=== PATIENT | male | born 1990 | race Caucasian/White ===

== ENCOUNTER 2019-06-10 16:18 | Emergency (ER) | payer OTHER, SELFPAY ==
[2019-06-10 16:21] VITALS: RESP 16; BMI 25.7
[2019-06-10 16:27] VITALS: BP 117/82; PULSE 96; RESP 16; TEMP 36.8; O2SAT 96
--- NOTE | 2019-06-10 17:10 | ED_ITS ---
HPI - Extremity Problem General: Chief complaint: Extremity Injury, Upper Stated complaint: LEFT HAND LAC Time Seen by Provider: 06/10/19 17:09 Source: patient Mode of arrival: ambulatory Limitations: no limitations History of Present Illness: HPI Narrative: Patient was working on a automobile today and was retrieving apart from it and cut his hand on a piece of glass. Patient states his tetanus is up-to-date. Patient has good range of motion of the hand. Patient appears well. Patient appears no distress. Review of Systems General: Reports: 10 or more systems reviewed and unremarkable except in HPI and below Skin/Breast: Reports: other (laceration left hand) [facility] PFSH: Social History Smoking and tobacco status: current every day smoker Physical Exam Const: COMMON NORMALS: no apparent distress and oriented x3 GENERAL APPEARANCE: cooperative HENMT: COMMON NORMALS: normocephalic, external ears normal, EAC's normal, TM's normal bilaterally and external nose normal HEAD & SCALP: normal to inspection and normocephalic FACE & SINUS: normal facial exam NOSE: external nose normal GENERAL EAR: hearing not grossly impaired EXTERNAL EAR: Yes external ears normal EXTERNAL AUDITORY CANAL: EAC's normal TYMPANIC MEMBRANE: TM's normal bilaterally MOUTH: oral and palatal mucosa normal THROAT: posterior oropharynx normal Eye: COMMON NORMALS: PERRL and EOMs intact bilaterally PUPIL: Yes PERRL Neck/C-Spine: COMMON NORMALS: full ROM and no lymphadenopathy Lymph: LYMPHATIC: no lymphedema noted Chest: COMMONS NORMALS: inspection of chest normal and palpation of chest normal Resp: COMMON NORMALS: normal respiratory effort and clear to auscultation bilaterally AUSCULTATION: clear to auscultation bilaterally Cardio: COMMON NORMALS: regular rate and regular rhythm RATE: regular rate RHYTHM: regular rhythm GI: COMMON NORMALS: normal to inspection, nondistended, normoactive bowel sounds and non-tender : COMMON NORMALS: Yes no CVA tenderness BLADDER/KIDNEY EXAM: Yes no CVA tenderness Back/Pelvis: COMMON NORMALS: no CVA tenderness and thoracic and lumbar spine normal to inspection Extremity: COMMON NORMALS: normal to inspection GENERAL: No edema Neuro: COMMON NORMALS: oriented x3, moves all extremities and no focal motor deficits Psych: COMMON NORMALS: mental status grossly normal and cooperative Skin: NARRATIVE SKIN EXAM: 3 cm curved laceration to the left hand. No foreign body was noted. No tendon injury. Procedures Laceration Laceration 1: Site: hand Side (If applicable): left Size (cm): 3 Description: flap Local Anesthetic: lidocaine 1% Amount of anesthesia used (mL): 8 Pre-repair: wound explored, irrigated extensively and deep structures intact Skin layer closed with: nylon Size (cm): 5-0 Number of sutures: 6 Technique: simple, interrupted Course Vital Signs: Vital signs: Vital Signs Temperature 98.3 F 06/10/19 16:27 Pulse Rate 96 06/10/19 16:27 Respiratory Rate 16 06/10/19 16:27 Blood Pressure 117/82 06/10/19 16:27 Pulse Oximetry 96 06/10/19 16:27 MDM - Extremity (Nontraumatic) MDM Narrative: Medical decision making narrative: Patient presents with injury to the left hand. On exam we note a 3 cm laceration to the palmar aspect of the left central hand. Exam notes no foreign body. Good tendon function. No vascular or other deformity is noted. Differential diagnosis foreign body, laceration, wound infection. Wound was cleaned and irrigated. Wound was repaired with 6 stitches. Patient tetanus was up-to-date. Reviewed exam with patient with recommendations for treatment and follow-up for suture removal in 10 days. Discharge Plan Discharge Patient Disposition: Home, Self-Care Clinical Impression: Laceration Condition: Stable Prescriptions: New cephalexin 500 mg capsule 500 mg PO BID 10 Days Qty: 20 RF: 0 Referrals: ABEBE [Family Provider] - Discharge Diet: Usual diet Discharge Activity: Limit activity as instructed Patient Instructions: Laceration (ED) Activity Restrictions/Additional Instructions: keep wound clean and dry activity as tolerated medications as directed Acetaminophen and ibuprofen for pain follow-up for suture removal in 10 days Return to ER for high fever or new concerns Coding Level of Care Code ED Director [employer] for Yadira Fwswati Exam Comprehensive
[2019-06-10] MEDS: lidocaine 1% INJ 20 mL 10 ML INTRADERMA (17:40)
[2019-06-10 18:10] VITALS: BP 116/81; PULSE 77; RESP 16; O2SAT 97
== END 2019-06-10 18:12 | disposition home or self-care (01) ==
PROVIDERS: Emergency Provider Nurse Practitioner Family
DX: S61.412A Laceration without foreign body of left hand, initial encounter (principal); W25.XXXA Contact with sharp glass, initial encounter; F17.200 Nicotine dependence, unspecified, uncomplicated
CPT/HCPCS: 12002; 12345; 99281; 99282; J2001

== ENCOUNTER 2019-08-08 17:05 | Emergency (ER) | payer OTHER, SELFPAY ==
[2019-08-08 17:05] VITALS: PULSE 75
[2019-08-08 17:20] VITALS: BP 129/89; PULSE 85; RESP 18; TEMP 37.1; O2SAT 98; BMI 25.5
--- NOTE | 2019-08-08 17:28 | XR_ITS ---
WS: [id number] RIGHT HAND: 3 VIEW(S) TECHNIQUE: PA, oblique and lateral. HISTORY: trauma COMPARISON: None available. Acute comminuted fracture involving the proximal fifth metacarpal. Transverse and vertical components of the intra-articular fracture. No displacement. No additional fractures. Moderate soft tissue edema over the medial hand. XR/XR hand RT min 3V* [id number] IMPRESSION: Mildly comminuted, intra-articular but nondisplaced proximal fifth metacarpal f racture.
--- NOTE | 2019-08-08 18:20 | W.ED.EXTPRO ---
HPI - Extremity Problem General: Chief complaint: Extremity Injury, Upper Stated complaint: R HAND INJURY Time Seen by Provider: 08/08/19 17:53 History of Present Illness: HPI Narrative: 29-year-old male who punched a wooden wall earlier today, has hand pain and swelling. Pain localizes to the ulnar side of the hand. MD Complaint: extremity pain and extremity swelling Onset (ago): hour(s) Pain Consistency: constant Location: right and upper extremity (Hand) Quality: aching Radiation: none Relieving factors: nothing Exacerbating factors: range of motion Associated symptoms: Deny chest pain, fever(s) or rash Review of Systems Const: Denies: fever or chills Card: Denies: chest pain, palpitations or swelling of feet/ankles Resp: Denies: shortness of breath, productive cough or wheezing Skin/Breast: Denies: rash Neuro: Denies: changes in sensation PFS ED PFSH: Social History Smoking and tobacco status: current every day smoker Physical Exam Const: GENERAL APPEARANCE: well developed ORIENTATION/CONSCIOUSNESS: Yes oriented to person, Yes oriented to place and Yes oriented to time HENMT: FACE & SINUS: normal facial exam NOSE: no nasal discharge Eye: COMMON NORMALS: PERRL, EOMs intact bilaterally and conjunctivae normal EYELID: eyelids normal CONJUNCTIVA: Yes conjunctivae normal PUPIL: Yes PERRL Neck/C-Spine: GENERAL: No tracheal deviation Chest: COMMONS NORMALS: inspection of chest normal CHEST: No tenderness Resp: EFFORT & INSPECTION: No tachypneic and No respiratory distress Cardio: COMMON NORMALS: regular rate and regular rhythm RATE: regular rate RHYTHM: regular rhythm PERIPHERAL PULSES: radial pulses present GI: AUSCULTATION: No hypoactive bowel sounds Extremity: NARRATIVE EXTREMITY EXAM: Exam of the right hand reveals tenderness, along the ulnar side of the hand at the fourth and fifth metacarpal. There is swelling across the dorsum of the hand, some bruising across the volar hand. No rotational deformity noted. Neuro: SENSORIUM/ORIENTATION: Yes oriented to person, Yes oriented to place and Yes oriented to time Psych: COMMON NORMALS: mental status grossly normal Skin: COMMON NORMALS: no rashes or lesions noted GENERAL SKIN EXAM: no rashes or lesions noted Course Vital Signs: Vital signs: Vital Signs Temperature 98.8 F 08/08/19 17:20 Pulse Rate 85 08/08/19 17:20 Respiratory Rate 18 08/08/19 17:20 Blood Pressure 129/89 08/08/19 17:20 Pulse Oximetry 98 08/08/19 17:20 MDM - Extremity (Nontraumatic) MDM Narrative: Medical decision making narrative: X-ray reveals a nondisplaced likely intra-articular fracture through the base of the fifth metacarpal. He will be placed in an ulnar gutter splint and told to follow-up with orthopedics. Discharge Plan Discharge Patient Disposition: Home, Self-Care Clinical Impression: Fracture of hand Qualifiers: Encounter type: initial encounter Fracture type: closed Laterality: right Qualified Code(s): S62.91XA - Unspecified fracture of right wrist and hand, initial encounter for closed fracture Condition: Stable Prescriptions: New [place] 7.5-325 mg tablet 1 tab PO Q6H PRN (Reason: pain) Qty: 14 RF: 0 No Action No Known Home Medications RF: 0 Discharge Orders: Discharge Order (Routine); Ordered 08/08/19 Ordered By: Manuel Neves Referrals: Patrick Maloney MD [Physician] - 1-3 days [facility] [Primary Care Provider] - Discharge Diet: Usual diet Discharge Activity: Limit activity as instructed Patient Instructions: Hand Fracture (ED) Activity Restrictions/Additional Instructions: Call orthopedics Friday morning for an appointment this week. Stay in splint, until seen by them. You may ice, straight through the splint material. Coding Level of Care Code ED Assistant Field Hockey Coach for Yadira Fwd Exam Comprehensive
--- NOTE | 2019-08-08 18:43 | ED_ITS ---
HPI - Extremity Problem General: Chief complaint: Extremity Injury, Upper Stated complaint: R HAND INJURY Time Seen by Provider: 08/08/19 17:53 History of Present Illness: HPI Narrative: 29-year-old male who punched a wooden wall earlier today, he complains of hand pain MD Complaint: extremity pain Pain Consistency: constant Location: right and upper extremity (Hand) Quality: aching Relieving factors: nothing Exacerbating factors: range of motion Associated symptoms: Deny chest pain or fever(s) Review of Systems Const: Denies: fever or chills Card: Denies: chest pain or palpitations Resp: Denies: shortness of breath, productive cough or wheezing GI: Denies: abdominal pain or vomiting Neuro: Denies: numbness in extremities or weakness in extremities PFSH ED PFSH: Social History Smoking and tobacco status: current every day smoker Physical Exam Const: GENERAL APPEARANCE: well developed ORIENTATION/CONSCIOUSNESS: Yes oriented to person, Yes oriented to place and Yes oriented to time HENMT: COMMON NORMALS: normocephalic HEAD & SCALP: normocephalic FACE & SINUS: normal facial exam Eye: COMMON NORMALS: PERRL, EOMs intact bilaterally and conjunctivae normal EYELID: eyelids normal CONJUNCTIVA: Yes conjunctivae normal PUPIL: Yes PERRL Neck/C-Spine: GENERAL: No tracheal deviation Chest: COMMONS NORMALS: inspection of chest normal CHEST: No tenderness Resp: EFFORT & INSPECTION: No tachypneic, No respiratory distress, No retractions, No uses accessory muscles and No tracheal deviation Cardio: COMMON NORMALS: regular rate and regular rhythm RATE: regular rate RHYTHM: regular rhythm HEART SOUNDS: no murmurs PERIPHERAL PULSES: radial pulses present GI: AUSCULTATION: No hypoactive bowel sounds PERCUSSION: no dullness to percussion and no tympanic to percussion Neuro: SENSORIUM/ORIENTATION: Yes oriented to person, Yes oriented to place and Yes oriented to time Psych: COMMON NORMALS: mental status grossly normal Skin: COMMON NORMALS: no rashes or lesions noted GENERAL SKIN EXAM: no rashes or lesions noted Course Vital Signs: Vital signs: Vital Signs Temperature 98.8 F 08/08/19 17:20 Pulse Rate 75 08/08/19 19:28 Respiratory Rate 20 H 08/08/19 19:28 Blood Pressure 131/86 08/08/19 19:28 Pulse Oximetry 98 08/08/19 19:28 MDM - Extremity (Nontraumatic) MDM Narrative: Medical decision making narrative: X-ray reveals 1/5 metacarpal base fracture. It is likely intra-articular. He will be placed in an ulnar gutter splint to the forearm, and asked to follow-up with orthopedics. Discharge Plan Discharge Patient Disposition: Home, Self-Care Clinical Impression: Fracture of hand Qualifiers: Encounter type: initial encounter Fracture type: closed Laterality: right Qualified Code(s): S62.91XA - Unspecified fracture of right wrist and hand, initial encounter for closed fracture Condition: Stable Prescriptions: [place] 7.5-325 mg tablet 1 tab PO Q6H PRN (Reason: pain) Qty: 14 RF: 0 No Action No Known Home Medications RF: 0 Discharge Orders: Discharge Order (Routine); Ordered 08/08/19 Ordered By: Manuel Neves Referrals: Patrick Maloney MD [Physician] - 1-3 days [facility] [Primary Care Provider] - Discharge Diet: Usual diet Discharge Activity: Limit activity as instructed Patient Instructions: Hand Fracture (ED) Activity Restrictions/Additional Instructions: Call orthopedics Friday morning for an appointment this week. Stay in splint, until seen by them. You may ice, straight through the splint material. Discharge Date/Time: 08/08/19 19:32 Coding Level of Care Code ED [employer] for Yadira Rojas
[2019-08-08] MEDS: ketorolac 10 mg Tablet PO (18:55)
[2019-08-08 19:28] VITALS: BP 131/86; PULSE 75; RESP 20; O2SAT 98
--- NOTE | 2019-08-09 16:26 | DCPLANNER ---
manager art had message to schedule a follow up appointment for patient with ortho. manager art called the ortho clinic, spoke with Jaclyn, gave clinic patients information. manager art was told that patients information would be printed and reviewed. Clinic will call nurse case management and patient with appointment information. Patient has [facility], nurse case management called [facility] with [facility], and informed her that patient was seen in the ED and a follow up appointment was needed with ortho. manager art was told that patient does not have a pact team to sign the referral, nurse case management was told that patient will need to call the [facility] and speak with the [facility] about getting a pact team. manager art called patient and informed patient that he would need to call the pact team to get a physician to sign his referral information. Patient stated that he would call the [facility].
--- NOTE | 2019-08-10 14:40 | DCPLANNER ---
Patient has a follow up appointment scheduled with ortho for 08.11.[address] Garza.
--- NOTE | 2019-08-25 08:16 | DCPLANNER ---
Patient did attend appointment scheduled for 08.11.19 with ortho.
== END 2019-08-08 19:32 | disposition home or self-care (01) ==
PROVIDERS: Emergency Provider Emergency Medicine
DX: S62.396A Other fracture of fifth metacarpal bone, right hand, initial encounter for closed fracture (principal); W22.09XA Striking against other stationary object, initial encounter; F17.210 Nicotine dependence, cigarettes, uncomplicated
CPT/HCPCS: 12345; 29125; 73130; 99281; 99283